=== PATIENT | female | born 1990 | race Caucasian/White ===

== ENCOUNTER 2016-06-16 07:21 | Emergency (ER) | payer BC, OTHER ==
[2016-06-16 07:50] VITALS: BP 108/79
--- NOTE | 2016-06-16 09:10 | UC ---
Complaint Female HPI - HPI Summary HPI Summary: 5 DAYS OF OVERALL MALAISE, SUBJECTIVE FEVER, MARTINEZ, WENT TO [facility] AND DIAGNOSED WITH VIRAL SYNDROME. HAS DEVELOPED LEFT FLANK PAIN AND NAUSEA WITH URINARY FREQUENCY AND BURNING. FOUL SMELLING URINE. - History Of Current Complaint Chief Complaint: UCGU Stated Complaint: UTI COMPLAINT Time Seen by Provider: 06/16/16 08:15 Hx Obtained From: Patient Hx Last Menstrual Period: 5 days ago Onset/Duration: Gradual Onset, Lasting Days, Still Present Timing: Constant Severity Initially: Moderate Severity Currently: Moderate Pain Intensity: 5 Pain Scale Used: 0-10 Numeric Character: Burning Aggravating Factor(s): Urination Alleviating Factor(s): Nothing Associated Signs And Symptoms: Positive: Fever, Back Pain, Nausea. Negative: Vaginal Bleeding/Discharge, Vaginal Discharge, Vomiting(# Of Episodes =), Genital Swelling, Genital Blisters - Allergies/Home Medications Allergies/Adverse Reactions: Allergies Allergy/AdvReac Type Severity Reaction Status Date / Time Penicillins Allergy Vomiting Verified 06/16/16 07:50 Home Medications: Home Medications Norethindrone Acet & Eth Estra [Microgestin 1.5/30 1.5-30 mg-Mcg] 1 tab PO DAILY 06/16/16 [History Confirmed 06/16/16] PMH/Surg Hx/FS Hx/Imm Hx Previously Healthy: Yes Endocrine History Of: Denies: Diabetes, Thyroid Disease Cardiovascular History Of: Denies: Cardiac Disorders, Hypertension Respiratory History Of: Denies: COPD, Asthma GI/ History Of: Denies: Ulcer - Surgical History Surgical History: Yes Surgery Procedure, Year, and Place: 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 - Family History Known Family History: Positive: Hypertension - Social History Alcohol Use: Occasionally Substance Use Type: None Smoking Status (MU): Never Smoked Tobacco Review of Systems Constitutional: Fever Respiratory: Negative Cardiovascular: Negative Gastrointestinal: Negative Genitourinary: Dysuria, Frequency, Urgency, Other - FLANK PAIN Neurological: Headache All Other Systems Reviewed And Are Negative: Yes Physical Exam Triage Information Reviewed: Yes Appearance: No Pain Distress, Well-Nourished, Ill-Appearing - MILD Vital Signs: Initial Vital Signs Temp 98.8 F 06/16/16 07:44 Pulse 84 06/16/16 07:44 Resp 16 06/16/16 07:44 BP 108/79 06/16/16 07:44 Pulse Ox 97 06/16/16 07:44 Eyes: Positive: Conjunctiva Clear ENT: Positive: Hearing grossly normal Neck: Positive: Supple Respiratory: Positive: No respiratory distress, No accessory muscle use Cardiovascular: Positive: Pulses Normal Abdomen Description: Positive: Soft, Other: - MILD SUPRAPUBIC TTP. Negative: CVA Tenderness (R), CVA Tenderness (L), Distended, Guarding Musculoskeletal: Positive: No Edema Neurological: Positive: Alert Psychological: Positive: Age Appropriate Behavior Skin: Negative: rashes Diagnostics - Laboratory Diagnostic Studies Completed/Ordered: URINE DIP SP. GR. 1.030, POS LEUKS, KETONES, BILI, BLOOD, PROTEIN - Radiology CT ABD/PELVIS W/O CONTRAST Xray Interpretation: No Acute Changes - NO HYDRONEPHROSIS OR NEPHROLITHIASIS Radiology Interpretation Completed By: Radiologist Complaint Female Dx - Differential Dx/Diagnosis Differential Diagnosis/HQI/PQRI: Renal Colic, Urinary Tract Infection Provider Diagnoses: PYELONEPHRITIS Discharge - Discharge Plan Condition: Stable Disposition: HOME Prescriptions: Phenazopyridine TAB* [Pyridium TAB*] 200 mg PO TID #6 tab Sulfamethox/Trimethoprim DS* [Bactrim DS 800/160 TAB*] 1 tab PO BID #14 tab Patient Education Materials: Urinary Tract Infection in Women (ED), Kidney Infection (ED) Referrals: No Primary Care Phys,NOPCP [Primary Care Provider] - Additional Instructions: URINE SENT FOR CULTURE. WE WILL CALL YOU IF WE NEED TO CHANGE YOUR ANTIBIOTIC. SEEK FOLLOW-UP HERE IF YOUR SYMPTOMS DO NOT IMPROVE EXPECTED. USE BACK-UP METHOD OF CONTROL FOR THE REMAINDER OF YOUR CURRENT CYCLE AND FOR THE NEXT CYCLE WELL. CALL THE NUMBER BELOW FOR ASSISTANCE IN ESTABLISHING WITH A PCP An additional resource available to assist in finding the appropriate physician for your health care needs is [facility] ([facility]). You may contact them by calling [phone].
--- NOTE | 2016-06-16 10:56 | RAD ---
CLINICAL HISTORY: Hematuria, flank pain COMPARISON: None TECHNIQUE: Multiple contiguous axial CT scans were obtained of the abdomen and pelvis, without intravenous contrast enhancement. Coronal and sagittal multiplanar reformations are submitted for review. Oral contrast was not administered. FINDINGS: The study is limited by the lack of intravenous contrast. This limits evaluation of the solid organs and vasculature. LUNG BASES: The lung bases are clear. LIVER: The liver is normal in shape, size, contour, and attenuation. BILE DUCTS: There is no intrahepatic or extrahepatic biliary dilatation. GALLBLADDER: The gallbladder is normal, without pericholecystic inflammatory change. PANCREAS: The pancreas is normal, without mass or ductal dilatation. SPLEEN: Normal in size and appearance. UPPER GI TRACT: Evaluation of the gastrointestinal tract is limited by incomplete gastric distention. The upper GI tract is unremarkable. SMALL BOWEL AND MESENTERY: The small bowel is normal in contour, course, and caliber. There is no obstruction or dilatation. COLON: The colon is normal in contour, course, caliber. There is no pericolonic inflammatory change. ADRENALS: Normal bilaterally. KIDNEYS: The kidneys are normal in shape, size, contour, and axis. There is no hydronephrosis or nephrolithiasis. BLADDER: The bladder is incompletely distended but is grossly normal. PELVIC ORGANS: The uterus and adnexa are grossly normal for technique. There is trace amount of free fluid within the pelvic cul-de-sac. Vascular calcifications are noted in the pelvis. AORTA: The aorta is normal. IVC: Unremarkable LYMPH NODES: There is no lymphadenopathy by size criteria. ABDOMINAL WALL: There is no evidence for abdominal wall hernia. BONES AND SOFT TISSUES: The bones and soft tissues are unremarkable. OTHER: None IMPRESSION: 1. NO APPRECIABLE HYDRONEPHROSIS OR NEPHROLITHIASIS. 2. SMALL AMOUNT OF FLUID WITHIN THE CUL-DE-SAC. THIS MAY BE PHYSIOLOGIC WITHIN A REPRODUCTIVE AGE FEMALE.
== END 2016-06-16 11:20 | disposition home or self-care (01) ==
LOC: UCEAST 07:21
DX: N12 Tubulo-interstitial nephritis, not specified as acute or chronic (principal); Z88.0 Allergy status to penicillin
CPT/HCPCS: 74176; 81003; 87086; 99212; G0463

== ENCOUNTER 2016-06-21 12:08 | Emergency (ER) | payer BC ==
[2016-06-21 12:20] VITALS: BP 122/71
--- NOTE | 2016-06-21 13:08 | UC ---
Complaint Female HPI - HPI Summary HPI Summary: Patient was treated on 06/16/16 for a UTI with bactrim, she only took 3 days of the treatment as she began vomiting and not able to keep anything down. she stopped the bactrim and the vomiting stopped. however she still is having lower abdominal fullness that radiates up her left side when she needs to go to the bathroom. denies any back pain. - History Of Current Complaint Chief Complaint: UCGU Stated Complaint: BACK AND SIDE PAIN Time Seen by Provider: 06/21/16 12:48 Hx Obtained From: Patient Hx Last Menstrual Period: 06/12/16 ?: No Onset/Duration: Sudden Onset, Lasting Days Timing: Constant Severity Initially: Mild Severity Currently: Moderate Character: Burning Aggravating Factor(s): Urination Associated Signs And Symptoms: Positive: Fever - Allergies/Home Medications Allergies/Adverse Reactions: Allergies Allergy/AdvReac Type Severity Reaction Status Date / Time Penicillins Allergy Vomiting Verified 06/21/16 12:20 PMH/Surg Hx/FS Hx/Imm Hx Previously Healthy: Yes Endocrine History Of: Denies: Diabetes, Thyroid Disease Cardiovascular History Of: Denies: Cardiac Disorders, Hypertension Respiratory History Of: Denies: COPD, Asthma GI/ History Of: Denies: Ulcer - Surgical History Surgical History: Yes Surgery Procedure, Year, and Place: 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 - Family History Known Family History: Positive: Hypertension - Social History Alcohol Use: Occasionally Substance Use Type: None Smoking Status (MU): Never Smoked Tobacco Review of Systems Constitutional: Fever Skin: Negative Eyes: Negative ENT: Negative Respiratory: Negative Cardiovascular: Negative Gastrointestinal: Abdominal Pain Genitourinary: Dysuria, Frequency Motor: Negative Neurovascular: Negative Musculoskeletal: Negative Neurological: Headache Psychological: Negative All Other Systems Reviewed And Are Negative: Yes Physical Exam Triage Information Reviewed: Yes Appearance: Well-Nourished, Ill-Appearing, Pain Distress Vital Signs: Initial Vital Signs Temp 99.2 F 06/21/16 12:16 Pulse 92 06/21/16 12:16 Resp 18 06/21/16 12:16 BP 122/71 06/21/16 12:16 Pulse Ox 100 06/21/16 12:16 Vital Signs Reviewed: Yes Eye Exam: Normal Eyes: Positive: Conjunctiva Clear ENT: Positive: Normal ENT inspection, Hearing grossly normal, Pharynx normal, TMs normal Dental Exam: Normal Neck exam: Normal Neck: Positive: Supple, Nontender, No Lymphadenopathy Respiratory Exam: Normal Respiratory: Positive: Chest non-tender, Lungs clear, Normal breath sounds Cardiovascular Exam: Normal Cardiovascular: Positive: RRR, No Murmur, Pulses Normal Abdomen Description: Positive: No Organomegaly, Soft, CVA Tenderness (R) - neg, CVA Tenderness (L) - neg, Other: - lower abdominal tenderness, Bowel Sounds: Positive: Present Musculoskeletal Exam: Normal Musculoskeletal: Positive: Strength Intact, ROM Intact, No Edema Neurological Exam: Normal Neurological: Positive: Alert, Muscle Tone Normal Psychological Exam: Normal Skin Exam: Normal Complaint Female Dx - Course Course Of Treatment: hx obtained, exam performed, meds reviewed, patients pain comes and goes with the bladder fullness, no pain after urination, comes back when bladder is full. UA obtained, switch ABX to macrobid, advised to increase fluid intake and return if not improving in the next 48 hours. Patient did not have any CVA tenderness. - Differential Dx/Diagnosis Differential Diagnosis/HQI/PQRI: Pelvic Inflammatory Disease, Sexually Transmitted Disease, Ureteral Stone, Urinary Tract Infection, Other - pyelonephritis Provider Diagnoses: UTI. dehydration. MARTINEZ Discharge - Discharge Plan Condition: Stable Disposition: HOME Patient Education Materials: Urinary Tract Infection in Women (ED) Additional Instructions: 1. Increase your fluid intake A LOT! ( about 70 - 80 oz) a day based on your weight 2. Take the antibiotics as prescribed 3. if you do not have improvement in symptoms in the next 48 hours seek medical attention.
== END 2016-06-21 13:16 | disposition home or self-care (01) ==
LOC: UCEAST 12:08
DX: N39.0 Urinary tract infection, site not specified (principal); E86.0 Dehydration; R51 Headache; R50.9 Fever, unspecified; Z88.0 Allergy status to penicillin
CPT/HCPCS: 99212; G0463